=== PATIENT | male | born 1995 | race Caucasian/White ===

== ENCOUNTER → 2022-08-08 | Outpatient (CLI) | payer OTHER ==
--- NOTE | 2022-08-08 15:39 | XR ---
EXAMINATION TYPE: XR finger RT DATE OF EXAM: 08/08/2022 COMPARISON: NONE HISTORY: Crushing injury with pain. TECHNIQUE: 3 views right fifth finger. FINDINGS: Linear lucency consistent with acute nondisplaced fracture through the distal diaphysis of the fifth distal phalanx. Joint spaces in the fifth finger are maintained. Overlying soft tissue is u nremarkable. IMPRESSION: Acute nondisplaced oblique fracture through distal diaphysis fifth distal phalanx.
== END | disposition home or self-care (01) ==
LOC: RADXRMAIN 15:15
PROVIDERS: ATTEND Emergency Medicine
DX: S62.666A Nondisplaced fracture of distal phalanx of right little finger, initial encounter for closed fracture (principal)